=== PATIENT | male | born 1935 | race Hispanic/Latino ===

== ENCOUNTER → 2019-09-28 | Outpatient (CLI) | payer MEDICARE | END | disposition home or self-care (01) | LOC: SHCH 09:34 | PROVIDERS: ATTEND Internal Medicine Cardiovascular Disease | DX: I44.7 Left bundle-branch block, unspecified (principal); I10 Essential (primary) hypertension | CPT/HCPCS: 93306 ==

== ENCOUNTER 2020-10-16 06:51 | Observation (INO) | payer MEDICARE ==
[2020-10-14 09:04] LABS: EOSINOPHILS % (AUTO) 2.4 % (0.0-8.0); HEMATOCRIT 44.9 % (42-54); LYMPHOCYTES % (AUTO) 30.4 % (21.0-51.0); MEAN CORPUSCULAR HEMOGLOBIN 31.3 pg (27.0-33.0); MEAN CORPUSCULAR HGB CONC 33.9 g/dL (32.0-36.0); MEAN CORPUSCULAR VOLUME 92.6 fL (79-99); PLATELET COUNT (AUTO) 214 K/uL (130-400); RED BLOOD CELL COUNT(AUTO) 4.85 MIL/uL (4.50-6.20); RED CELL DISTRIBUTION WIDTH 12.4 % (11.0-15.5); WHITE BLOOD COUNT (AUTO) 5.8 K/uL (4.8-10.8)
[2020-10-14 09:11] LABS: CREATININE 1.2 mg/dL (0.5-1.5); POTASSIUM 4.1 mmol/L (3.5-5.1)
[2020-10-14 09:27] LABS: INR 1.05 (0.85-1.15); PARTIAL THROMBOPLASTIN TIME 26.8 SEC (26.3-35.5); PROTHROMBIN TIME 11.3 SEC (9.6-11.6)
[~2020-10-16] VITALS: Ht 175.3 cm; Wt 73.9 kg
[~2020-10-16 06:51] MED LIST: AMLO-259 PO; CEFAZOLIN SODIUM 1 GM VIAL IVP SCH; DORZ10DR19 OP; LATA7.5D OP; LEVO50TA11 PO
[2020-10-16] MEDS ORDERED: SODIUM CHLORIDE 0.9% 1000ML 1,000 ML IV ONE (07:00)
[2020-10-16 08:15] VITALS: BP 154/71
--- NOTE | 2020-10-16 11:40 | NUR ---
PROCEDURE PT TAKEN TO PROCEDURE VIA BED BY [employer] TEAM COACH STAFF.
[2020-10-16] MEDS ORDERED: MEPERIDINE-PF 25 MG/ML SYG ONE ×3 (11:43→13:54)
[2020-10-16] MEDS ORDERED: MIDAZOLAM HCL 1 MG/ML 2ML VIAL ONE ×3 (11:43→13:53)
[2020-10-16] MEDS ORDERED: CEFAZOLIN SODIUM 1 GM VIAL ONE (11:43)
[2020-10-16] MEDS ORDERED: BUPIVACAINE/PF 0.25% 30ML VIAL IJ ONE (11:43)
[2020-10-16] MEDS ORDERED: LIDOCAINE HCL 1% MDV 50ML VIAL ONE (11:43)
[2020-10-16] MEDS ORDERED: IODIXANOL 320 MG/ML 100 ML VIAL ONE (12:03)
--- NOTE | 2020-10-16 13:22 | NUR ---
REPORT REPORT GIVEN TO ALBERTO STAPLES. AT BEDSIDE
--- NOTE | 2020-10-16 15:00 | NUR ---
NONE Addendum: 10/16/20 at 1816 by FOSTER RICHMOND RN RN Amended: Links added.
[2020-10-16 15:10] VITALS: BP 147/76
--- NOTE | 2020-10-16 20:00 | NUR ---
PATIENT ALERT AND ORIENTATED, DENIES ANY COMPLAINTS OF PAIN OR DISCOMFORT. DRESSING TO LEFT UPPER CHEST CLEAN, DRY, AND INTACT. NO BLEEDING NOTED, SITE APPEARS SOFT TO PALPATION.
[2020-10-16 20:01] VITALS: BP 135/67
[2020-10-16] MEDS: CARVEDILOL 6.25 MG TABLET PO SCH (20:41)
[2020-10-16] MEDS ORDERED: DORZOLAMIDE HCL OP SCH (21:00)
[2020-10-16] MEDS ORDERED: LATANOPROST 2.5 ML DROPS OP SCH (21:00)
[2020-10-16] MEDS ORDERED: NON-FORMULARY MEDICATION 1 EACH (Latanoprost/Pf (Latanoprost 0.005% Eye Drop) 1 DROP) OP SCH (21:00)
[2020-10-16 23:11] VITALS: BP 139/65
--- NOTE | 2020-10-17 01:00 | NUR ---
LT UPPER CHEST DRESSING CLEAN, DRY, AND INTACT. NO DRAINAGE NOTED, APPEARS SOFT TO PALPATION.
[2020-10-17] MEDS: DORZOLAMIDE HCL 2% 10ML DROPS OP SCH ×2 (01:20→09:28)
[2020-10-17 03:49] VITALS: BP 154/72
[2020-10-17] MEDS ORDERED: LEVOTHYROXINE 50 MCG TABLET PO SCH (06:30)
[2020-10-17 08:26] VITALS: BP 152/85
[2020-10-17 09:28] VITALS: BP 152/85
[2020-10-17] MEDS: CARVEDILOL 6.25 MG TABLET PO SCH (09:28)
[2020-10-17] MEDS ORDERED: CARV6.25 PO (09:30)
--- NOTE | 2020-10-17 11:38 | NUR ---
PT STATED UNDERSTANDING OF DISCHARGE INSTRUCTIONS INCLUDING PACEMAKER INTERROGATION AND DRSG CHANGE INSTRUCTIONS WITH SUPPLIES PROVIDED PT STATES UNDERSTANDING OF HIS RESTRICTIONS OF THE AFFECTED LEFT SIDE TO PROPERLY PROTECT THE WOUND SITE AND INSERTED LEADS. PT IS DISMISSED BY W/C WITH SLING IN PLACE, IN GOOD CONDITION, IV REMOVED W/O DIFFICULTY OR COMPLICATIONS. PT IS ACCOMPANIED BY HIS AND STAFF
[2020-10-17] MEDS ORDERED: AMLODIPINE BESYLATE 5 MG TAB PO SCH (12:00)
[2020-10-17] MEDS ORDERED: ATORVASTATIN CALCIUM 40 MG TABLET PO SCH (12:00)
--- NOTE | 2020-10-18 15:38 | NUR ---
FOLLOW UP PHONE CALL CALLED MR. ADAM AND SPOKE WITH HIM REGARDING HIS DISCHARGE. HE STATED THAT HE PICKED UP HIS PRESCRIPTIONS AND THAT HE STARTED TAKING HIS MEDICATION ORDERED. PATIENT ALSO REMINDED NOT GET HIS PACEMAKER SITE WET, KEEP SITE COVERED, DO NOT LIFT ARM OR DRIVE UNTIL CLEARED BY MD, AND NOT TO PUT PRESSURE ON THE ARM. HE VERBALIZED UNDERSTANDING AND RECITED THE THE INSTRUCTIONS. ALL QUESTIONS ANSWERED. PATIENT REMINDED TO CALL THE MD IF HE HAD ANY QUESTIONS OR CONCERNS.
== END 2020-10-17 11:45 | disposition home or self-care (01) ==
LOC: DAH 06:51 → UNDOADMOB 06:52 → 4CH 06:52
PROVIDERS: ADMIT Internal Medicine; ATTEND Internal Medicine
DX: I44.1 Atrioventricular block, second degree (principal); R00.1 Bradycardia, unspecified; I25.10 Atherosclerotic heart disease of native coronary artery without angina pectoris; I10 Essential (primary) hypertension; Z79.899 Other long term (current) drug therapy; Z88.5 Allergy status to narcotic agent
CPT/HCPCS: 33208; 33225; 33286; 36415; 71045; 80048; 85025; 85610; 85730; 96360; 96361 ×2; A4215; A4216; A4221; A4222; A4223 ×3; A4606; A4649; A4663; C1769 ×2; C1898 ×2; C1900; C2621; G0378 ×21; J0690; J2175 ×3; J2250 ×3; J3490 ×2; J7030; 99156; 99157; Q9967